=== PATIENT | male | born 1980 | race African-American/Black ===

== ENCOUNTER 2019-10-27 19:36 | Emergency (ER) | payer SELFPAY ==
[~2019-10-27] VITALS: Ht 185.4 cm; Wt 102.0 kg
[2019-10-27] MEDS ORDERED: HYDROcodone/APAP 5 MG/325 MG (LORTAB) TAB PO ONE (20:15)
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
--- NOTE | 2019-10-27 20:39 | Diagnostic Imaging Report ---
INDICATION: Left ankle pain. EXAMINATION: Left ankle, 10/27/2019. FINDINGS: Three views of the ankle. There is no fracture or dislocation. Talar dome and ankle mortise are intact. Nonspecific lucencies are seen along the posterior aspect of the lower extremity, perhaps air from a laceration. There does appear to be overlying bandage material. Correlate clinically. Gas-forming organism would be the other possibility. IMPRESSION: 1. No acute osseous abnormality. 2. Soft tissue findings in the posterior lower extremity, see above discussion. Dictated by: Dictated on workstation # [id number]
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
[2019-10-27] MEDS ORDERED: RX-AMOX/CLAV. (AUGMENTIN) 500MG TAB PPK#2 PO STA (20:42)
[2019-10-27] MEDS ORDERED: RX-HYDROCODONE/APAP 5/325 MG #4 TAB PK PO PRN (20:45)
[2019-10-27 21:17] VITALS: BP 133/90
== END 2019-10-27 21:17 | disposition home or self-care (01) ==
LOC: ER 19:40
DX: S91.012A Laceration without foreign body, left ankle, initial encounter (principal); S60.222A Contusion of left hand, initial encounter; V19.9XXA Pedal cyclist (driver) (passenger) injured in unspecified traffic accident, initial encounter; Y93.55 Activity, bike riding
CPT/HCPCS: 73130; 73610